=== PATIENT | male | born 1970 | race Caucasian/White ===

== ENCOUNTER 2017-03-23 10:15 | Emergency (ER) | payer MEDICAID ==
[~2017-03-23] VITALS: Ht 167.6 cm; Wt 79.5 kg
[2017-03-23] MEDS ORDERED: LIDOCAINE HCL 1% 10 ML VIAL INJ ONE (11:00)
[2017-03-23] MEDS ORDERED: BACITRACIN 0.9 GM PACKET OINTMENT TP ONE (12:30)
[2017-03-23 12:46] VITALS: BP 131/77
== END 2017-03-23 12:53 | disposition home or self-care (01) ==
LOC: EMS 10:20
DX: S61.012A Laceration without foreign body of left thumb without damage to nail, initial encounter (principal); R03.0 Elevated blood-pressure reading, without diagnosis of hypertension; W25.XXXA Contact with sharp glass, initial encounter; Y93.E9 Activity, other interior property and clothing maintenance; Y92.89 Other specified places as the place of occurrence of the external cause; Y99.8 Other external cause status
CPT/HCPCS: 12002; 73140; 99284; J3490

== ENCOUNTER 2021-06-16 16:19 | Emergency (ER) | payer MEDICAID, SELFPAY ==
[~2021-06-16] VITALS: Ht 167.6 cm; Wt 77.3 kg
[2021-06-16 16:29] VITALS: BP 118/74
[2021-06-16 17:21] LABS: COVID AG,FIA SOURCE NASOPHARYNGEAL
[2021-06-16 18:06] LABS: INFLUENZA TYPE A NEGATIVE FOR TYPE A (NEGATIVE); INFLUENZA TYPE B NEGATIVE FOR TYPE B (NEGATIVE)
== END 2021-06-16 18:47 | disposition home or self-care (01) ==
LOC: EMS 16:32
DX: U07.1 COVID-19 (principal)
CPT/HCPCS: 87426; 87804; 99283; U0003